=== PATIENT | female | born 1985 | race Two or more races ===

== ENCOUNTER 2025-08-31 22:36 | Emergency (ER) | payer MEDICAID, OTHER ==
[~2025-08-31] VITALS: Ht 157.5 cm; Wt 77.1 kg
[2025-08-31] MEDS ORDERED: ONDANSETRON HCL/PF 4 MG/2 ML VIAL ONE (23:43)
[2025-08-31] MEDS ORDERED: KETOROLAC TROMETHAMINE 15 MG/ML VIAL ONE (23:43)
[2025-08-31] MEDS: ONDANSETRON HCL/PF 4 MG/2 ML VIAL IV ONE (23:46)
[2025-08-31] MEDS: KETOROLAC TROMETHAMINE 15 MG/ML VIAL IV ONE (23:46)
[2025-08-31 23:48] LABS: PLATELET COUNT (AUTO) 345 K/uL (150-450); RED BLOOD CELL COUNT(AUTO) 4.76 MIL/uL (4.0-5.2); RED CELL DISTRIBUTION WIDTH 17.4 % (11.5-15.0); WHITE BLOOD COUNT (AUTO) 9.2 K/uL (4.3-11.0)
[2025-08-31 23:52] LABS: APPEARANCE,URINE CLEAR (CLEAR); BLOOD, URINE NEGATIVE Ery/uL (NEGATIVE); LEUKOCYTE ESTERASE ,URINE NEGATIVE (NEGATIVE); NITRITE, URINE NEGATIVE (NEGATIVE); UGLUCOSE NEGATIVE (NEGATIVE)
[2025-08-31] MEDS ORDERED: IV NS 0.9% 250 ML IV ONE (23:53)
[2025-08-31] MEDS ORDERED: IOHEXOL-300 100 ML VIAL IV ONE (23:53)
[2025-08-31] MEDS ORDERED: CT SWABBABLE VALVE TRANS SET 1 EA INFUS.SET MC ONE (23:53)
[2025-08-31 23:56] LABS: CALCIUM, SERUM 8.7 mg/dL (8.5-10.1); CREATININE 0.9 mg/dL (0.6-1.3); SODIUM SERUM 136.0 mmol/L (136-145); UREA NITROGEN, BLOOD 12.0 mg/dL (7-18)
[2025-08-31 23:57] LABS: PREGNANCY TEST URINE QUAL NEGATIVE (NEGATIVE)
[2025-09-01 00:02] LABS: ASPARTATE AMINOTRANSFERASE 16.0 U/L (15-37); TOTAL PROTEIN, SERUM 7.3 g/dL (6.4-8.2)
[2025-09-01 01:13] VITALS: BP 103/77; TEMP 98; O2SAT 99
== END 2025-09-01 01:14 | disposition home or self-care (01) ==
LOC: ER 22:40
DX: R10.30 Lower abdominal pain, unspecified (principal); R11.0 Nausea
CPT/HCPCS: 99285; 74177; 96374; 96375; 85025; 85027; 80048; 80076; 84703; 81003; 36415; 85007; J1885; J2405; J7050; Q9967